=== PATIENT | female | born 1960 ===

== ENCOUNTER 2019-03-29 09:13 | Outpatient (CLI) | payer OTHER ==
[~2019-03-29 09:13] MED LIST: ADVAIR 2501 DISK W/1; HYZAAR 100/25 T1 TAB; JANUVIA25 MG; METFORMIN HCL500 MG
== END 2019-03-29 09:33 | disposition home or self-care (01) ==
LOC: NUCLEAR 09:13
DX: I73.9 Peripheral vascular disease, unspecified (principal)

== ENCOUNTER 2019-03-30 10:20 | Outpatient (CLI) | payer OTHER | END 2019-03-30 10:32 | disposition home or self-care (01) | LOC: NUCLEAR 10:20 | DX: I87.2 Venous insufficiency (chronic) (peripheral) (principal); I73.9 Peripheral vascular disease, unspecified ==

== ENCOUNTER 2019-09-26 16:15 | Outpatient (CLI) | payer OTHER | END 2019-09-26 16:21 | disposition home or self-care (01) | LOC: LAB 16:15 | DX: J11.1 Influenza due to unidentified influenza virus with other respiratory manifestations (principal); D64.0 Hereditary sideroblastic anemia ==

== ENCOUNTER 2020-06-12 09:54 | Outpatient (CLI) | payer OTHER | END 2020-06-12 10:03 | disposition home or self-care (01) | LOC: NUCLEAR 09:54 | PROVIDERS: ATTEND Obstetrics & Gynecology Maternal & Fetal Medicine | DX: M81.0 Age-related osteoporosis without current pathological fracture (principal) ==

== ENCOUNTER 2021-06-17 08:10 | Outpatient (CLI) | payer OTHER | END 2021-06-17 08:12 | disposition home or self-care (01) | LOC: NUCLEAR 08:10 | PROVIDERS: ATTEND Internal Medicine Cardiovascular Disease | DX: I87.2 Venous insufficiency (chronic) (peripheral) (principal) ==